=== PATIENT | female | born 1955 | race Caucasian/White ===

== ENCOUNTER 2023-04-18 10:56 | Emergency (ER) | payer OTHER, MEDICARE ==
[~2023-04-18] VITALS: Ht 152.4 cm; Wt 72.6 kg
[~2023-04-18 10:56] MED LIST: CYCL10TA24 PO; GLU500 PO; LISI10TA29 PO; PRO40 PO; TRAM50TA92 PO
[2023-04-18 11:04] VITALS: BP_SYST 131; PULSE 68; RESP 18; TEMP 97.1; O2SAT 97
[2023-04-18] MEDS ORDERED: MAG HYDROX/AL HYDROX/SIMETH 30 ML, DICYCLOMINE HCL 20 MG, LIDOCAINE VISCOUS 2% 15ML (PO... PO ONE ×3 (11:15)
[2023-04-18 11:49] LABS: BASOPHILS # (AUTO) 0.1 K/uL (0.0-0.2); BASOPHILS % (AUTO) 1.3 % (0.0-2.0); EOSINOPHILS # (AUTO) 0.1 K/uL (0.0-0.4); EOSINOPHILS % (AUTO) 1.2 % (0.0-4.0); HEMATOCRIT 37.9 % (36-48); LYMPHOCYTES # (AUTO) 3.3 K/uL (1.0-5.5); LYMPHOCYTES % (AUTO) 29.8 % (20.5-51.5); MEAN CORPUSCULAR HEMOGLOBIN 30 pg (27-31); MEAN CORPUSCULAR HGB CONC 34 % (32-36); MEAN CORPUSCULAR VOLUME 88 fL (79.0-98.0); MONOCYTES % (AUTO) 8.7 % (1.7-9.3); NEUTROPHILS # (AUTO) 6.5 K/uL (1.8-7.7); PLATELET COUNT (AUTO) 355 K/uL (130-430); RED CELL DISTRIBUTION WIDTH 13.3 % (9.0-15.0)
[2023-04-18 11:52] LABS: ANION GAP 11 (5-15); CALCIUM 10.4 mg/dL (8.4-11.0); CARBON DIOXIDE 27 mmol/L (23-29); CHLORIDE 97 mmol/L (98-107); CREATININE 0.91 mg/dL (0.55-1.30); GFR AFRICAN AMERICAN 79 mL/min (>90); GFR NON AFRICAN-AMERICAN 65 mL/min (>90); GLUCOSE 121 mg/dL (74-106); POTASSIUM 4.7 mmol/L (3.5-5.1); SODIUM SERUM 135 mmol/L (136-145); UREA NITROGEN, BLOOD 22 mg/dL (8-21)
[2023-04-18 11:59] LABS: AMYLASE 60 U/L (0-100); LIPASE 51 U/L (16-77)
== END 2023-04-18 12:00 | disposition home or self-care (01) ==
LOC: SED 10:56
DX: K20.90 Esophagitis, unspecified without bleeding (principal); R07.89 Other chest pain; R12 Heartburn; E11.9 Type 2 diabetes mellitus without complications; I10 Essential (primary) hypertension; Z79.899 Other long term (current) drug therapy
CPT/HCPCS: 36415; 71045; 80048; 82150; 83690; 84484; 85025; 93005; 99285; J2001